=== PATIENT | female | born 1960 | race Caucasian/White ===

== ENCOUNTER 2018-10-12 16:25 | Inpatient (IN) | payer OTHER ==
[~2018-10-12 16:25] MED LIST: Heparin 10,000 UNITS/ 10 ML VIAL ONE
[2018-10-12 17:13] LABS: Mean Corpuscular HGB CONC 33.1 g/dL (32.0-36.0); Mean Corpuscular Hemoglobin 36.5 pg (27.0-31.0); Mean Platelet Volume 6.2 fL (7.4-10.4); Platelet Count 454 thou/uL (130-400); RBC Distribution Width 14.1 % (11.5-14.5); Red Blood Cell (RBC) Count 3.29 mill/uL (4.20-5.40); White Blood Cell (WBC) Count 38.7 thou/uL (4.8-10.8)
--- NOTE | 2018-10-12 17:19 | RAD ---
CHEST ONE VIEW 10/12/18 HISTORY: Cough. COMPARISON: None. FINDINGS: There is abnormal mass right lower lobe. There is also abnormal mass projecting in the right middle l obe. Heart size is mildly prominent. Increased interstitial markings lung bases. Old posterior left 7th rib fracture. IMPRESSION: 1. Mass-like densities projecting in the right middle and right lower lobe. This may reflect und erlying malignancy process versus resolving infection. Nonemergent CT chest recommended. 2. Interstitial markings lung bases can be seen with chronic interstitial lung disease. POS: HOME
[2018-10-12 17:22] LABS: ALT (SGPT) 19 U/L (8-55); AST (SGOT) 22 U/L (5-34); Albumin 3.9 g/dL (3.5-5.0); Alcohol Less than 10 mg/dL (Less than 10); Alkaline Phosphatase 211 U/L (40-150); BUN (Urea Nitrogen) 108 mg/dL (9.8-20.1); Bilirubin, Total 0.3 mg/dL (0.2-1.2); Calc. Creatinine Clearance 0 mL/min (70-130); Calcium 9.3 mg/dL (7.8-10.44); Chloride 96 mmol/L (98-107); Estimated GFR-MDRD 7; Globulin 4.8 g/dL (2.4-3.5); Glucose 163 mg/dL (70-105); Lipase 27 U/L (8-78); Potassium 4.9 mmol/L (3.5-5.1); Protein, Total 8.7 g/dL (6.0-8.3); Salicylate Less than 8.0 mg/dL (15.0-30.0); Sodium 122 mmol/L (136-145)
[2018-10-12 17:24] LABS: Carbon Dioxide Less than 8 mmol/L (22-29)
--- NOTE | 2018-10-12 17:43 | CT ---
CT BRAIN NONCONTRAST: DATE: 10/12/2018 HISTORY: 58-year-old female with fever and altered mental status. FINDINGS: There is no evidence of acute intra-axial or extra-axial hemorrhage. There is no midline shift or any other mass effect. There is no extra-axial fluid collection. There is no evidence of obstructive hydrocephalus. Calvarium is intact. There are air-fluid levels in the bilateral maxillary sinuses. Th e bilateral tympanomastoid cavities are grossly clear. Mucosal thickening throughout ethmoid air cells anteriorly. Hypoplastic frontal sinuses. IMPRESSION: 1) No acute intracranial findings. 2) fluid in the bilateral maxillary sinuses.
[2018-10-12 17:48] LABS: Band 20 % (5-11); Lymphocytes 2 % (21-51); MDiff Complete? YES; Macrocytosis MODERATE=16-30 cells (100X) (0-5/hpf); Monocytes 4 % (0-10); Neutrophil 74 % (42-75); Platelet Morphology Comment Appears Increased; Polychromasia SLIGHT = 2-3 cells (100X) (0-2/hpf)
--- NOTE | 2018-10-12 17:52 | CT ---
CT THORAX WITH CONTRAST: DATE: 10/12/2018 HISTORY: 58-year-old female with cough, chest congestion, and fever COMPARISON: none FINDINGS: Focal consolidation at the lingula, small. Patchy, irregularly-shaped moderate to small consolidation/infiltrate at lateral basilar segment of r ight lower lobe, and at base of right middle lobe. Smaller, milder infiltrates at posterior basilar segments of bilateral lower lobes, right greater jocelyn n left. Broad regions of tree in bud nodularity between the infiltrates at the basilar segments of right lowe r lobe. No pleural effusion or pneumothorax. No pulmonary edema. No neoplastic tumor mass identified. Ectasia and tortuosity of thoracic aorta without aneurysm. No cardiomegaly. No mediastina l lymphadenopathy. Trachea patent and clear.The upper and mid lung zones are clear. IMPRESSION: 1. Pneumonia in the basilar segments of bilateral lower lobes, right middle lobe, and lingula of left upper lobe. 2. No evidence of malignancy.
[2018-10-12 18:13] LABS: INR-International Normal Ratio 1.3; PTT 42.5 SEC (22.9-36.1); Prothrombin Time 16.3 SEC (12.0-14.7)
[2018-10-12] MEDS ORDERED: cefTRIAXone\\ROCEPHIN 2 GM VIAL ONE (18:31)
[2018-10-12 18:32] LABS: Bilirubin Negative (Negative); Blood, Urine Large (Negative); Clarity TURBID (Clear); Glucose, Urine (Dipstick) Negative (Negative); Leukocyte Small (Negative); Nitrite Negative (Negative); Protein, Urine (Dipstick) 100 mg/dL (Neg-Trace); Urobilinogen 0.2 mg/dL (0.2-1.0)
[2018-10-12 18:35] LABS: Bacteria/HPF None Seen HPF (None Seen); RBC/HPF GREATER THAN 50-TNTC HPF (0-3)
[2018-10-12 18:36] LABS: Hyaline Casts/LPF 0-3 HYALINE CAST LPF (0-3 Hyaline); Manual Microscopic Reviewed? No Path Casts Seen; Renal Epithelial None Seen HPF (0-3); Transitional Epithelial NONE SEEN HPF (0-3)
[2018-10-12 18:40] LABS: Analyzer IN Cardio ER; Base Excess (BEa) -27.4 mEq/L (-2.0 to +3.0); Calcium, Ionized 1.24 mmol/L (1.12-1.30); Carboxyhemoglobin (COHb) 0.6 gm% (0.0-3.0); Hemoglobin (Hb) 11.9 g/dL (12.0-16.0); O2 Tension (PaO2) 116.1 mmHg (80.0-100.0); Potassium - ABG Lab 4.92 mmol/L (3.70-5.30)
[2018-10-12 18:42] LABS: Amphetamine Not Detected (NotDetected); Barbiturates Screen Not Detected (NotDetected); Benzodiazepine Screen Not Detected (NotDetected); Cocaine Metabolite Screen Not Detected (NotDetected); Medtox Control Line Valid? VALID (VALID); Medtox Reader # READER 4; Methadone Not Detected (NotDetected); Methamphetamine Not Detected (NotDetected); Opiate Screen Detected (NotDetected); Oxycodone Screen Not Detected (NotDetected); Phencyclidine (PCP) Not Detected (NotDetected); THC/Cannabinoid Screen Not Detected (NotDetected); Tricyclic Screen Detected (NotDetected)
[2018-10-12] MEDS ORDERED: Sodium Bicarb 50 MEQ/50 ML Abboject 8.4% SYRINGE ONE (18:46)
--- NOTE | 2018-10-12 18:52 | CON ---
DATE OF CONSULTATION: REASON FOR CONSULTATION: Severe metabolic acidosis. HISTORY OF PRESENT ILLNESS: This is a somewhat noncompliant 58-year-old female who presented to the hospital after being unable to breathe. The patient has known CKD, but has had no recent followup with a records management engineer. The patient denies any nausea, vomiting, and cannot give no further history. PAST MEDICAL HISTORY: Significant for acute kidney injury requiring dialysis on multiple occasions, sepsis, spider bite. No hypertension. No diabetes or congestive heart failure. SOCIAL HISTORY: No alcohol or drug use. FAMILY HISTORY: Negative for ESRD. ALLERGIES: REVIEWED. HOME MEDICATIONS: List reviewed. REVIEW OF SYSTEMS: Unobtainable due to the patient's altered waxing and waning condition. PHYSICAL EXAMINATION: VITAL SIGNS: Afebrile, pulse 70, breathing 16, blood pressure 130/70. See above. The patient is somnolent. GENERAL APPEARANCE AND MENTAL STATUS: Fair. HEAD/NECK: Normocephalic. Atraumatic. EYES: EOMI. No deformity. EARS: Clear. No ulcers. NOSE: Intact. No lesions. MOUTH: Clear. No discharge. THROAT: Clear. No exudate. LUNGS: Clear. No crackles. CARDIAC: S1, S2. No rub. ABDOMEN: Benign. Bowel sounds positive. GENITALIA/RECTUM: Green absent. BACK/EXTREMITIES: Edema 0+. NEUROLOGICAL: The patient is somnolent. SKIN: LYMPHATICS: LABORATORY DATA: Sodium 122, creatinine 5.9. ASSESSMENT AND PLAN: 1. Acute kidney injury with chronic kidney disease, most likely due to progressive acute tubular necrosis in the setting of altered mental status, jerky movements. I will plan to dialyze the patient. Risks versus benefits were discussed with the patient including all complications and the patient with agreed to perform dialysis. 2. Anemia, stable. 3. Medications based on GFR appropriate. Overall prognosis is poor. 4. Elevated white count, probably could be sepsis, needs to be ruled out. Job ID: [id number]
[2018-10-12 19:01] LABS: CO2 Tension 13.8 mmHg (35.0-45.0); Puncture Site RBA; pH, Arterial 6.95 (7.35-7.45)
[2018-10-12] MEDS ORDERED: Piperacillin/Tazobactam 4.5 GM VIAL ONE (19:13)
[2018-10-12] MEDS ORDERED: Sodium Chloride 0.9% 100 ML ONE (19:14)
[2018-10-12] MEDS ORDERED: Acetaminophen 325 MG TAB PO PRN (19:26)
[2018-10-12] MEDS ORDERED: Sodium Chloride 0.9% (PF) 10 ML VIAL FS PRN (20:06)
[2018-10-12] MEDS ORDERED: Vancomycin Sliding Scale 1 EACH FS PRN (20:11)
--- NOTE | 2018-10-12 20:14 | HP ---
CHIEF COMPLAINT: Feeling real bad. PRIMARY CARE PROVIDER: Out of town. HISTORY OF PRESENT ILLNESS: This is a 58-year-old female with history of hypertension, history of requiring dialysis secondary to kidney injury, who presented to the emergency room with the above complaint. Please note that the patient does have encephalopathy and no significant history is obtained. The patient is aware that she is in the hospital, states her daughter was today, and that she has been feeling really bad. She is unable to focus and answer other questions. Family is not available currently to answer questions. In the emergency room, the patient was found to have an acute kidney injury, be uremic, with a severe metabolic acidosis and hyponatremia, high, and prison officer, general surgeon, hospitalist all called for care. The patient did receive a dialysis catheter by Dr. Leija, bicarbonate 2 amps, Zosyn 4.5 g, ceftriaxone 2 g, normal saline 30 mL/kg, vancomycin 1 g, all IV. ALLERGIES: PER CHART REVIEW, NONE KNOWN. HOWEVER, THIS HAS NOT BEEN CONFIRMED. CURRENT MEDICATIONS: Unknown. PAST MEDICAL HISTORY: Per chart review for; 1. An acute kidney injury requiring dialysis. 2. Sepsis. 3. History of staph infection. PAST SURGICAL HISTORY: Per chart review for right arm orthopedic surgery. SOCIAL HISTORY: Per chart review, the patient is . FAMILY HISTORY: Unknown. REVIEW OF SYSTEMS: Unobtainable. PHYSICAL EXAMINATION: VITAL SIGNS: Blood pressure 129/72, pulse 77, respirations 16, temp most recently 97.4 oral, however was 95.4 on arrival and sats 97% on room air. GENERAL: The patient will awaken to voice. She is alert. She responds to questions and then she will drift off. HEENT: Her pupils are equal and round. No scleral icterus. Her oral mucosa is pink and moist. NECK: Supple, nontender. LYMPHATICS: No palpable cervical or supraclavicular lymphadenopathy. LUNGS: Clear to auscultation bilateral. No audible wheezing, rhonchi, or rales HEART: Normal S1, S2. Regular rate and rhythm. No significant murmur. ABDOMEN: Soft with present bowel sounds. Nontender, nondistended. EXTREMITIES: No pitting edema, clubbing, or cyanosis. SKIN: No visible rashes. DIAGNOSTIC DATA: CT of her chest shows multifocal pneumonia and that was personally reviewed. Brain CT; no acute change, fluid in the bilateral maxillary sinuses. Chest x-ray showed masslike densities in the right middle and right lower lobe, which may reflect underlying malignancy versus resolving infection, interstitial markings at the lung bases which may be seen with chronic interstitial lung disease. LABORATORY DATA: Labs reviewed. CBC; 38.7, 12, 36.3, 454. PT 16, INR 1.3, PTT 42.5. Her ABG; 6.95, 13.8, 116 with a base excess of -27, and a sat of 96.3. Chemistry; 122, 4.9, 96, less than 8, 108, 5.98, 163. LFTs notable for an alkaline phosphatase of 211, total protein of 8.7, albumin 3.9. Troponin negative, lipase 27, TSH 2.58. Ammonia was 38. Urine shows present protein, large blood, small leukocyte esterase, greater than 50 red blood cells, 11-20 white blood cells, and 4-6 squamous cells. Toxicology; Tylenol level 39, salicylate less than 8, positive opiates and tricyclics. EKG; personally reviewed, sinus rhythm, normal axis, normal intervals, no ST changes. IMPRESSION: 1. Acute kidney injury in the context of a patient with a history of same requiring dialysis. She has a hyponatremia, uremia, severe metabolic acidosis, encephalopathy, hematuria and proteinuria, all associated. 2. Sepsis concerning for pneumonia given the patient's mental state, possibly an aspiration pneumonia. 3. Hematuria and pyuria, possible urinary tract infection. 4. Positive drug screen for opiates and tricyclics of uncertain etiology and present Tylenol level with normal LFT. 5. Unknown medical history and medications. PLAN: 1. Admission to the ICU. 2. The patient has received a dialysis catheter and will undergo hemodialysis with Dr. Duran. She is currently receiving bicarbonate to address this severe metabolic acidosis. 3. We will continue vancomycin and Zosyn with Pharmacy to dose renally. No indication to continue ceftriaxone. Follow blood and urine cultures. 4. N.p.o. 5. Monitor labs and urine output, renal ultrasound is ordered. 6. Obtain history from the family as they are available. 7. DVT prophylaxis with heparin. 8. GI prophylaxis. We will use IV Protonix while the patient is n.p.o. 9. Code status is presumed full given unable to confirm with family. 10. The patient is at high risk given age, comorbidities, and current presentation. 11. We will review the plan of care with the family as they are available as well as obtain more history. Job ID: [id number] MTDD
[2018-10-12 21:10] LABS: HBSAg Index 0.25 S/CO (0-0.99); Hep B Surf Ag Non-Reactive S/CO (NonReactive)
--- NOTE | 2018-10-12 21:10 | HP ---
Esha Swan, a 58-year-old female from [place] attending her daughter's wedding locally. She has been sick between 1 and 2 weeks, not feeling well, dyspneic, malaise. She attended her daughter's wedding today and presented to the emergency room. [place] [address], hemoglobin of 12. Her potassium is 4.9, sodium 122, BUN 108, creatinine 5.98, GFR 7. She had a right arm IV. I have been asked by Dr. Duran to place a hemodialysis urgent catheter for dialysis as she is terribly dyspneic and orthopneic. ALLERGIES: NONE. SOCIAL HISTORY: Tobacco none. Alcohol use in the past, none currently. MEDICATIONS: Antihypertensive, anti-depressants. PAST SURGICAL HISTORY: Noncontributory. PAST MEDICAL HISTORY: She has been on dialysis in the past and told that was secondary to sepsis. 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 REVIEW OF SYSTEMS: Noncontributory. PHYSICAL EXAMINATION: GENERAL: The patient is dyspneic, lethargic. She does interact appropriately. LUNGS: Rhonchi at base. CARDIAC: Regular rate and rhythm. ABDOMEN: Soft. EXTREMITIES: Edematous. LABORATORY DATA: As noted above. ASSESSMENT AND PLAN: Acute probably on chronic renal failure. We will place a temporary dialysis catheter for emergent dialysis. We will plan placement of more permanent dialysis access in the next 48-72 hours. Job ID: [id number]
[2018-10-12] MEDS: Heparin 5,000 UNITS/ML VIAL SC SCH (21:37)
[2018-10-13] MEDS: Sodium Chloride 0.9% 1,000 ML IV SCH ×2 (00:02→09:20)
[2018-10-13] MEDS: Piperacillin/Tazobactam 2.25 GM in Sodium Chloride 0.9% 100 ML IVPB SCH ×3 (02:45→18:04)
[2018-10-13] MEDS ORDERED: Sodium Chloride 0.9% 1,000 ML IV SCH ×2 (03:45→05:45)
[2018-10-13 06:13] LABS: Anion Gap 23 mmol/L (10-20); BUN (Urea Nitrogen) 47 mg/dL (9.8-20.1); Calc. Creatinine Clearance 19 mL/min (70-130); Calcium 7.2 mg/dL (7.8-10.44); Carbon Dioxide 13 mmol/L (22-29); Chloride 100 mmol/L (98-107); Estimated GFR-MDRD 15; Glucose 86 mg/dL (70-105); Potassium 2.9 mmol/L (3.5-5.1); Sodium 133 mmol/L (136-145)
[2018-10-13] MEDS ORDERED: Potassium Chloride 20 MEQ in Premix Bag 1 BAG IVPB ONE (07:45)
[2018-10-13 08:32] LABS: Band 14 % (5-11); Hemoglobin 9.2 g/dL (12.0-16.0); Lymphocytes 3 % (21-51); MDiff Complete? YES; Mean Corpuscular HGB CONC 34.1 g/dL (32.0-36.0); Mean Corpuscular Hemoglobin 35.8 pg (27.0-31.0); Mean Platelet Volume 6.1 fL (7.4-10.4); Monocytes 6 % (0-10); Myelocyte 1 % (0-0); Neutrophil 76 % (42-75); Nucleated RBC 1 % (0); Platelet Count 341 thou/uL (130-400); RBC Distribution Width 13.9 % (11.5-14.5); Red Blood Cell (RBC) Count 2.56 mill/uL (4.20-5.40); White Blood Cell (WBC) Count 21.8 thou/uL (4.8-10.8)
[2018-10-13 08:38] LABS: Vancomycin, Trough 11.9 ug/mL
--- NOTE | 2018-10-13 08:51 | ULT ---
Exam: Bilateral renal ultrasound complete: HISTORY: Acute kidney injury, hematuria COMPARISON: None FINDINGS: Right kidney: 9.8 x 4.3 x 4.5 cm Left kidney: 10.1 x 4.6 x 5.5 cm No renal hydronephrosis. Coarse increased renal cortical echogenicity evidence for nonspecific chronic renal disease. No perin ephric process. Somewhat distended gallbladder without overt gallbladder wall thickening, and fat-suppressed concern, follow-up dedicated gallbladder ultrasound is recommended. No solid or cystic renal mass. Unremarkable appearing bladder. IMPRESSION: No hydronephrosis. Increased renal cortical echogenicity particularly on the right side evidence for chronic change. Somewhat distended gallbladder incompletely visualized.
[2018-10-13] MEDS: Heparin 5,000 UNITS/ML VIAL SC SCH ×2 (09:18→20:54)
[2018-10-13] MEDS: Pantoprazole 40 MG VIAL IVP SCH (09:19)
--- NOTE | 2018-10-13 09:48 | ULT ---
ULTRASOUND UPPER EXTREMITY VESSEL MAPPING FOR DIALYSIS ACCESS: Date: 10/13/18 HISTORY: ESRD. FINDINGS: RIGHT UPPER EXTREMITY CEPHALIC VEIN Proximal Arm: 1.1 mm Mid Arm: 0.9 mm Distal Arm: 1.2 mm Antecubital Fossa: 1.1 mm Proximal Forearm: 2.1 mm Mid Forearm: 1.5 mm Distal Forearm: 1.3 mm BASILIC VEIN Proximal Arm: 5.1 mm Mid Arm: 3.9 mm Distal Arm: 3.7 mm Antecubital Fossa: 3.8 mm Proximal Forearm: 2.2 mm Mid Forearm: 0.9 mm Distal Forearm: 0.9 mm BRACHIAL ARTERY: 3.9 mm RADIAL ARTERY: 2.2 mm ULNAR ARTERY: 1.6 mm LEFT UPPER EXTREMITY CEPHALIC VEIN Proximal Arm: 3.3 mm Mid Arm: 2.0 mm Distal Arm: 1.8 mm Antecubital Fossa: 2.8 mm Proximal Forearm: 1.4 mm Mid Forearm: 1.2 mm Distal Forearm: 1.1 mm BASILIC VEIN Proximal Arm: 8.5 mm Mid Arm: 5.9 mm Distal Arm: 2.6 mm Antecubital Fossa: 2.8 mm Proximal Forearm: 1.1 mm Mid Forearm: 0.9 mm Distal Forearm: 0.9 mm BRACHIAL ARTERY: 4.3 mm RADIAL ARTERY: 1.8 mm ULNAR ARTERY: 1.8 mm POS: [facility]
[2018-10-13 10:28] LABS: Actual Bicarbonate (HCO3a) 12.2 mEq/L (22-28); Base Excess (BEa) -11.7 mEq/L (-2.0 to +3.0); Calcium, Ionized 0.96 mmol/L (1.12-1.30); Carboxyhemoglobin (COHb) 1.2 gm% (0.0-3.0); Hemoglobin (Hb) 9.7 g/dL (12.0-16.0); O2 Tension (PaO2) 75.3 mmHg (80.0-100.0); Potassium - ABG Lab 3.27 mmol/L (3.70-5.30); pH, Arterial 7.36 (7.35-7.45)
[2018-10-13 10:29] LABS: CO2 Tension 22.4 mmHg (35.0-45.0); Puncture Site RRA
[2018-10-13] MEDS ORDERED: Vancomycin HCl 250 MG in Sodium Chloride 0.9% 100 ML IVPB SCH (10:30)
[2018-10-13] MEDS ORDERED: Vancomycin HCl 1 GM in Premix Bag 1 BAG IVPB SCH (10:30)
[2018-10-13] MEDS ORDERED: Vancomycin HCl 750 MG in Sodium Chloride 0.9% 250 ML 250 ML IVPB SCH (10:30)
[2018-10-13] MEDS ORDERED: Vancomycin HCl 500 MG in Sodium Chloride 0.9% 100 ML IVPB SCH (10:30)
--- NOTE | 2018-10-13 11:21 | PRG ---
DATE OF SERVICE: 10/13/2018 SUBJECTIVE: A 58-year-old female being seen for end-stage renal disease. The patient denies any nausea, vomiting, or chest pain. OBJECTIVE: CONSTITUTIONAL: On examination, the patient is resting well. VITAL SIGNS: Afebrile, pulse 94, breathing 16, and blood pressure 104/61. GENERAL APPEARANCE AND MENTAL STATUS: Fair. HEAD/NECK: Normocephalic. Atraumatic. EYES: EOMI. No deformity. EARS: Clear. No ulcers. NOSE: Intact. No lesions. MOUTH: Clear. No discharge. THROAT: Clear. No exudate. LUNGS: Clear. No crackles. CARDIAC: S1, S2. No rub. ABDOMEN: Benign. Bowel sounds positive. GENITALIA/RECTUM: Green absent. BACK/EXTREMITIES: Edema 0+. NEUROLOGICAL: Alert and motor intact. LABORATORY DATA: Reviewed. ASSESSMENT AND PLAN: 1. Chronic kidney disease, stage 6. Plan dialysis tomorrow. 2. Metabolic acidosis. Start bicarbonate drip after potassium is fixed. 3. Hypokalemia. Recommend aggressive potassium replacement and rechecking potassium at 1:00 p.m. Sepsis management per Primary Team. Job ID: [id number]
--- NOTE | 2018-10-13 11:39 | PDOC.PN ---
- Subjective Encounter Start Date: 10/13/18 Encounter Start Time: 10:30 Ms. Swan was seen today in follow-up of acute on chronic kidney disease and pneumonia. She says she feels better today. She is much less short of breath. - Objective Resuscitation Status - Order Detail: 10/12/18 19:26 Resuscitation Status Routine Resuscitation Status: FULL: Full Resuscitation Discussed with: No family available at time of entering - need to discuss MAR Reviewed: Yes Vital Signs & Weight: Vital Signs (12 hours) Temp 10/13/18 08:00 98.5 F 10/13/18 06:00 99.2 F 10/13/18 04:55 97.9 F 10/13/18 04:00 98.1 F 10/13/18 00:00 97.5 F L Weight Weight 133 lb 6.075 oz Most Recent Monitor Data Heart Rate from ECG 93 NIBP 101/39 NIBP BP-Mean 59 Respiration from ECG 24 SpO2 93 I&O: 10/12/18 10/13/18 10/14/18 06:59 06:59 06:59 Intake Total 1900 Output Total 391 235 Balance 1509 -235 Result Diagrams: 10/13/18 05:16 10/13/18 05:16 Additional Labs: Accuchecks 10/12/18 16:52 POC Glucose 188 H Phys Exam - Physical Examination HEENT: PERRLA, sclera anicteric + rales at the right lung base Cardiovascular: RRR, no rub + sysolic murmur Gastrointestinal: soft, non-tender, no distention, positive bowel sounds + abdominal bruit Musculoskeletal: no edema, pulses present Neurological: non-focal, moves all 4 limbs Dx/Plan (1) Acute renal failure superimposed on chronic kidney disease Code(s): N17.9 - ACUTE KIDNEY FAILURE, UNSPECIFIED; N18.9 - CHRONIC KIDNEY DISEASE, UNSPECIFIED Status: Acute (2) Pneumonia Code(s): J18.9 - PNEUMONIA, UNSPECIFIED ORGANISM Status: Acute (3) Sepsis Code(s): A41.9 - SEPSIS, UNSPECIFIED ORGANISM Status: Acute - Plan * Acute on chronic kidney disease- she required emergent dialysis yesterday. renal ultrasound noted- management per nephrology * Pneumonia- will continue broad spectrum antibiotics for now (Vancomycin and Zosyn) . She has quite a leukomoid reaction . * Sepsis- likely from pneumonia- continue current antibiotics- await culture results * Heart murmur- possible new murmur- will check Echo
[2018-10-13] MEDS ORDERED: Potassium Chloride 20 MEQ TAB PO SCH ×3 (12:00→19:45)
[2018-10-13 13:31] LABS: Anion Gap 22 mmol/L (10-20); BUN (Urea Nitrogen) 48 mg/dL (9.8-20.1); Calc. Creatinine Clearance 17 mL/min (70-130); Calcium 7.1 mg/dL (7.8-10.44); Carbon Dioxide 11 mmol/L (22-29); Chloride 105 mmol/L (98-107); Estimated GFR-MDRD 14; Glucose 82 mg/dL (70-105); Magnesium 2.2 mg/dL (1.6-2.6); Potassium 3.4 mmol/L (3.5-5.1); Sodium 135 mmol/L (136-145)
[2018-10-13 18:48] LABS: Anion Gap 23 mmol/L (10-20); BUN (Urea Nitrogen) 49 mg/dL (9.8-20.1); Calc. Creatinine Clearance 16 mL/min (70-130); Calcium 7.3 mg/dL (7.8-10.44); Chloride 108 mmol/L (98-107); Estimated GFR-MDRD 13; Glucose 91 mg/dL (70-105); Potassium 3.8 mmol/L (3.5-5.1); Sodium 135 mmol/L (136-145)
[2018-10-13 18:51] LABS: Carbon Dioxide 8 mmol/L (22-29)
[2018-10-13] MEDS: Sodium Bicarbonate 150 MEQ in Dextrose 5% in Water 1,000 ML IV SCH (19:54)
--- NOTE | 2018-10-13 21:26 | CON ---
DATE OF CONSULTATION: 10/13/2018 HISTORY OF PRESENT ILLNESS: Ms. Swan is a 58-year-old female, admitted with acute renal failure. I was consulted because of her presence in the Critical Care Unit. She required emergent dialysis last night. She has been feeling poorly for 2 weeks, but did not want to go see a doctor because her daughter was getting yesterday. She actually had to leave in the middle of a wedding to go to the hospital. PAST HISTORY: Past medical history is very tangential. and the patient , both keep going back to a "left cheek spider bite" that led to a staph infection many years ago. All of her health problems reportedly started at that time they claim. SOCIAL HISTORY: Today admit that she has been a heavy drinker up until recently and she claims that she is not drinking anymore. She has a history of hyponatremia, but it is unclear whether or not the hyponatremia was related to her alcoholism or has continued to occur in spite of her alcohol abstinence. She reportedly has a history of depression. She has been intubated in the past and required emergent dialysis at least 2 times in the past. She has never had a renal biopsy. The family did know whether she has normal renal function in between these episodes. She is cared for at multiple places in [facility], but has received her care recently at [facility]. FAMILY HISTORY: Negative for lung disease in the early age. REVIEW OF SYSTEMS: 10 point review of systems completed, otherwise negative. PHYSICAL EXAMINATION: GENERAL: Says she feels fine right now. VITAL SIGNS: She is afebrile. Blood pressure 102/65, heart rate 82, respiratory rate 18. HEENT: Pupils are equal. Sclerae anicteric. NECK: Supple. No lymphadenopathy. LUNGS: Clear. HEART: Regular rhythm, S1 and S2 are normal, grade 1 to 2/6 systolic murmur. ABDOMEN: Soft and nontender. EXTREMITIES: Without clubbing, cyanosis, or edema. LABORATORY DATA: White count 21.8, it was 38.7 yesterday, hemoglobin 9.2, platelets 341. She had 76 segs, 14 bands and 20 bands yesterday. Interesting thing is that she had a bicarb of less than 8, but no circulating serum lactate with a lactate level of 0.6, alkaline phosphatase was isolated and elevated to 211. AST and ALT are normal. Total protein is 8.7, globulin is 4.8. Urinalysis showed [id number]-count red cells, 11 to 20 white cells. Her initial creatinine is 5.98. Initial potassium was 4.9. Amazingly, her blood gas showed pH 6.95, pCO2 of 13, pO2 of 116. IMPRESSION: Acute renal failure with severe metabolic acidosis secondary to acute renal failure of unclear etiology. Obviously, there are multiple possible etiologies. It is unclear whether renal function is in between these episodes. They really just want to get back to dialysis, so it is reasonable once she has had documentation of stability of her acid-base disorder, she could go back to dialysis. PH today is 7.36, pCO2 of 22 , pO2 of 75. The academic support specialist's plans to give her bicarb that fails to lead to resolution of her acid-base disorder, so she just needs to be dialyzed again. I doubt seriously if she is septic. With her elevated total serum protein and elevated globulin fraction, I would wonder about multiple myeloma. I am more concerned that she has a primary glomerulonephritis that was waxing and waning. I would think she would need a renal biopsy, but all will be deferred to Nephrology. She is medically stable and can transfer out of the Critical Care Unit, probably in the morning and perhaps even be discharged back to [place] to see her academic support specialist early this week. She needs copies of her records and her imaging. Since she is not going to receive care here, I do not feel she needs dialysis access placed here. I do not think a renal biopsy would be appropriate here as well. She has bilateral increased echogenicity on renal ultrasound, arguing that she does have chronic intrinsic renal disease. I will send an antineutrophil cytoplasmic antibody today, but I did not send any other serology. Hepatitis serology was negative. I doubt this is HIV related, but this probably needs to be checked at some point. She appears to be stable at this point in time. TIME SPENT: This is a 70-minute consult, with greater than 50% of time spent on the unit coordinating care. Job ID: [id number] MTDD
[2018-10-14] MEDS: Piperacillin/Tazobactam 2.25 GM in Sodium Chloride 0.9% 100 ML IVPB SCH ×3 (02:48→17:48)
[2018-10-14 05:25] LABS: Anion Gap 19 mmol/L (10-20); BUN (Urea Nitrogen) 50 mg/dL (9.8-20.1); Calc. Creatinine Clearance 17 mL/min (70-130); Calcium 7.3 mg/dL (7.8-10.44); Carbon Dioxide 12 mmol/L (22-29); Chloride 107 mmol/L (98-107); Estimated GFR-MDRD 13; Glucose 132 mg/dL (70-105); Potassium 3.4 mmol/L (3.5-5.1); Sodium 135 mmol/L (136-145)
[2018-10-14 05:30] LABS: Band 7 % (5-11); Eosinophils 1 % (0-10); Hemoglobin 8.8 g/dL (12.0-16.0); Lymphocytes 10 % (21-51); MDiff Complete? YES; Macrocytosis SLIGHT = 6-15 cells (100X) (0-5/hpf); Mean Corpuscular HGB CONC 33.6 g/dL (32.0-36.0); Mean Corpuscular Hemoglobin 35.7 pg (27.0-31.0); Mean Platelet Volume 5.8 fL (7.4-10.4); Monocytes 11 % (0-10); Neutrophil 71 % (42-75); Platelet Count 325 thou/uL (130-400); RBC Distribution Width 14.6 % (11.5-14.5); Red Blood Cell (RBC) Count 2.46 mill/uL (4.20-5.40); White Blood Cell (WBC) Count 20.8 thou/uL (4.8-10.8)
[2018-10-14] MEDS: Sodium Bicarbonate 150 MEQ in Dextrose 5% in Water 1,000 ML IV SCH ×3 (07:49→20:13)
[2018-10-14 08:31] LABS: Vancomycin, Random 9.5 ug/mL (See Comment)
[2018-10-14] MEDS: Heparin 5,000 UNITS/ML VIAL SC SCH ×2 (09:40→20:13)
[2018-10-14] MEDS: Pantoprazole 40 MG VIAL IVP SCH (09:41)
--- NOTE | 2018-10-14 11:09 | PDOC.PN ---
- Subjective Encounter Start Date: 10/14/18 Encounter Start Time: 11:08 Ms. Swan was seen today in follow-up of acute on chronic kidney disease. she says she is feeling better today. She admits to a cogh which is productive of some fairly thick green sputum. - Objective Resuscitation Status - Order Detail: 10/12/18 19:26 Resuscitation Status Routine Resuscitation Status: FULL: Full Resuscitation Discussed with: No family available at time of entering - need to discuss MAR Reviewed: Yes Vital Signs & Weight: Vital Signs (12 hours) Temp Pulse Ox 10/14/18 08:00 98.3 F 100 10/14/18 04:00 98.0 F 10/14/18 00:00 98.5 F Weight Weight 135 lb 2.294 oz Most Recent Monitor Data Heart Rate from ECG 88 NIBP 111/64 NIBP BP-Mean 79 Respiration from ECG 24 SpO2 100 I&O: 10/13/18 10/14/18 10/15/18 06:59 06:59 06:59 Intake Total 1900 2928 Output Total 391 1840 600 Balance 1509 1088 -600 Result Diagrams: 10/14/18 04:35 10/14/18 04:35 Phys Exam - Physical Examination HEENT: PERRLA Respiratory: no wheezing, no rhonchi + rales at both lung bases, R>L Cardiovascular: RRR, no rub 2/6 systolic murmur Gastrointestinal: soft, non-tender, no distention, positive bowel sounds Musculoskeletal: no edema, pulses present Neurological: non-focal, normal sensation, moves all 4 limbs Dx/Plan (1) Acute renal failure superimposed on chronic kidney disease Code(s): N17.9 - ACUTE KIDNEY FAILURE, UNSPECIFIED; N18.9 - CHRONIC KIDNEY DISEASE, UNSPECIFIED Status: Acute (2) Pneumonia Code(s): J18.9 - PNEUMONIA, UNSPECIFIED ORGANISM Status: Acute (3) Sepsis Code(s): A41.9 - SEPSIS, UNSPECIFIED ORGANISM Status: Acute - Plan * Acute on chronic kidney injury vs. ESRD- continue management as per Nephrology * Pneumonia with sepsis- discussed with Dr. Silva- can begin to de-escalate her antibiotics * The Leukocytosis is improving * Severe metabolic acidosis- unclear etiology- will defer to Nephrology.
[2018-10-14 13:19] VITALS: BMI 22.4
--- NOTE | 2018-10-14 16:14 | PRG ---
DATE OF SERVICE: 10/14/2018 SERVICE: Pulmonary Medicine. INTERVAL HISTORY: The patient is doing fine from respiratory standpoint. She denies any current chest pain, fevers, or chills. Otherwise, there has been no interval change to her condition. She did not have any dialysis yesterday and her bicarb seems to be improving slightly. She has had no formal workup for acid or for what is causing her acidosis. PHYSICAL EXAMINATION: VITAL SIGNS: Afebrile, pulse 96, blood pressure 102/66, respirations 22, and saturation 96% on room air. GENERAL: The patient is awake and alert, in no apparent distress. LUNGS: Decent air entry without any prolonged expiratory phase or wheezing present. HEART: Normal rate and regular. ABDOMEN: Soft, nontender, and nondistended. Bowel sounds are positive. MUSCULOSKELETAL: No cyanosis or clubbing. There is no pitting in bilateral lower extremities. NEUROLOGIC: Grossly nonfocal. LABORATORY DATA: WBC 20.8, hemoglobin 8.8, and platelets 325,000. Neutrophil and band count are returning to the normal limits, and lymphocyte and monocyte counts are rebounding. INR 1.33. The pH 7.36, pCO2 of 22, and pO2 of 75. Creatinine 3.49, and stable. Potassium 3.4, basic metabolic profile is otherwise unremarkable. Magnesium previously 2.2, ammonia 38, liver function studies were unremarkable except for minimally elevated alkaline phosphatase. Lipase and TSH fell within the normal limits, lactate was unremarkable, and ammonia was normal. Urinalysis is positive for red blood cells. Alcohol and salicylates are unremarkable. Urine drug screen is positive for opiates and tricyclics. Acetaminophen level is elevated at 39. Hepatitis B surface antigen is nonreactive. Blood cultures x2 and urine culture negative to date. IMAGING STUDIES: Echocardiogram shows a normal ejection fraction with minimal diastolic dysfunction. Mild aortic stenosis is noted. ASSESSMENT: 1. Metabolic acidosis, severe. 2. Acute renal failure, suspected. 3. Hematuria. 4. Severe sepsis. DISCUSSION AND PLAN: The patient is stable for transition out of the ICU to the floor. When she gets out of the hospital, she will need to undergo a thorough evaluation for why she is having the recurrent episodes of severe acidosis. I will continue the bicarb drip for the time being. If she still requiring into tomorrow, we will need to convert her over to p.o. Vancomycin will be interrupted today. We will continue the Zosyn. We really do not have a source or an idea of what we were treating. If by tomorrow, we have not captured an organism, I would empirically treat her with Augmentin for duration of roughly 7 days. None of the Green catheter has been removed, we can repeat a urinalysis in the morning to see if the hematuria has persisted. Job ID: [id number]
[2018-10-15] MEDS: Piperacillin/Tazobactam 2.25 GM in Sodium Chloride 0.9% 100 ML IVPB SCH (03:23)
[2018-10-15 04:54] LABS: Bilirubin Negative (Negative); Blood, Urine Small (Negative); Clarity CLEAR (Clear); Glucose, Urine (Dipstick) Negative (Negative); Leukocyte Negative (Negative); Nitrite Negative (Negative); Protein, Urine (Dipstick) Trace mg/dL (Neg-Trace); Urobilinogen 0.2 mg/dL (0.2-1.0)
[2018-10-15 04:55] LABS: Bacteria/HPF None Seen HPF (None Seen); Hyaline Casts/LPF 0-3 HYALINE CAST LPF (0-3 Hyaline); Pathc Cast-AUWi Flag 0.13 (0-2.49); Squamous Epithelial None Seen HPF (0-3); WBC/HPF 0-3 HPF (0-3)
[2018-10-15 06:17] LABS: Anion Gap 19 mmol/L (10-20); BUN (Urea Nitrogen) 38 mg/dL (9.8-20.1); Calc. Creatinine Clearance 23 mL/min (70-130); Calcium 7.6 mg/dL (7.8-10.44); Carbon Dioxide 20 mmol/L (22-29); Chloride 100 mmol/L (98-107); Estimated GFR-MDRD 19; Glucose 127 mg/dL (70-105)
[2018-10-15 06:22] LABS: Potassium 2.8 mmol/L (3.5-5.1); Sodium 136 mmol/L (136-145)
[2018-10-15 06:30] LABS: Band 6 % (5-11); Eosinophils 1 % (0-10); Hemoglobin 9.1 g/dL (12.0-16.0); Lymphocytes 15 % (21-51); MDiff Complete? YES; Mean Corpuscular HGB CONC 33.7 g/dL (32.0-36.0); Mean Corpuscular Hemoglobin 35.5 pg (27.0-31.0); Mean Platelet Volume 5.9 fL (7.4-10.4); Monocytes 12 % (0-10); Neutrophil 66 % (42-75); Platelet Count 324 thou/uL (130-400); RBC Distribution Width 14.5 % (11.5-14.5); Red Blood Cell (RBC) Count 2.57 mill/uL (4.20-5.40); White Blood Cell (WBC) Count 17.6 thou/uL (4.8-10.8)
[2018-10-15] MEDS ORDERED: Potassium Chloride 20 MEQ TAB PO SCH ×3 (07:00→17:00)
[2018-10-15] MEDS: Heparin 5,000 UNITS/ML VIAL SC SCH (07:32)
[2018-10-15] MEDS: Pantoprazole 40 MG VIAL IVP SCH (07:33)
[2018-10-15] MEDS: Sodium Bicarbonate 150 MEQ in Dextrose 5% in Water 1,000 ML IV SCH (09:51)
--- NOTE | 2018-10-15 09:57 | PRG ---
DATE OF SERVICE: 10/14/2018 OBJECTIVE: GENERAL: This is a well-built female, in no apparent distress. VITAL SIGNS: Temperature 97.7, pulse 83, respiratory rate 20, blood pressure 112/64. LABORATORY DATA: Sodium 135, potassium 3.4, BUN is 50, creatinine is 3.4. ASSESSMENT AND PLAN: 1. Acute kidney injury on chronic kidney disease stage 4, seems like renal function is stable, no acute indication for dialysis. 2. Severe metabolic acidosis, seems to be better or stable. 3. Hypokalemia, replace and monitor. 4. Hyponatremia. 5. Hypocalcemia. 6. Anemia . 7. No acute indication for dialysis today. We will continue to monitor. The patient does reports that he does not have a regular followup. The patient was advised to follow up with Nephrology. If labs are stable, she can be discharged and follow up as outpatient with monitor car operator. Monitor urine output closely. Avoid nephrotoxins. Job ID: [id number]
[2018-10-15] MEDS ORDERED: Piperacillin/Tazobactam 2.25 GM in Sodium Chloride 0.9% 100 ML IVPB SCH (11:00)
--- NOTE | 2018-10-15 13:13 | PRG ---
DATE OF SERVICE: 10/15/2018 SERVICE: Pulmonary Medicine. INTERVAL HISTORY: The patient is doing fine from respiratory standpoint. She is breathing comfortably. She has absolutely no complaints of chest pain, fevers, cough, sputum production, nausea, or vomiting. Otherwise, she feels that she is returning to her usual state of health and has absolutely no complaints. PHYSICAL EXAMINATION: VITAL SIGNS: Afebrile, pulse 75, blood pressure 133/84, respirations 16, and saturation 100% on room air. GENERAL: The patient is awake and alert, in no apparent distress. LUNGS: Excellent air entry without any prolonged expiratory phase or wheezing. HEART: Normal rate and regular. ABDOMEN: Soft, nontender, and nondistended. Bowel sounds are positive. MUSCULOSKELETAL: No cyanosis or clubbing. No pitting in the bilateral lower extremities. SKIN: Tenting is improved. Neurologic: Grossly nonfocal. LABORATORY DATA: WBC is downtrending to 17.6, hemoglobin 9.1, and platelets 324,000. Neutrophil count has returned to normal. INR 1.3. Potassium 2.8, creatinine is downtrending to 2.62, BUN 38, bicarb has improved to 20, and calcium 7.6. Blood cultures x2 and urine culture negative. ASSESSMENT: 1. Metabolic acidosis, severe. 2. Acute kidney injury, resolving. 3. Hematuria, nearly resolved. 4. Hypokalemia, resolved. 5. Severe sepsis, clearing, source unknown. DISCUSSION AND PLAN: At this point, the patient has no further inpatient requirements for Pulmonary/Critical Care opinion. I will replace the potassium. We will discontinue the bicarb drip and will also schedule Bicitra twice daily. She already has laboratories, and an appointment with her primary care physician in 1 week at the end of this week. As soon as she gets home, she will make contact with her shop director, and get in with them as soon as possible, so that they can try to clarify why she is having this acidosis. If she develops any significant respiratory issues, please give me a phone call, but otherwise, she has no further requirements for inpatient Pulmonary opinion. Job ID: [id number]
--- NOTE | 2018-10-15 13:48 | PDOC.PN ---
- Subjective Encounter Start Date: 10/15/18 Encounter Start Time: 13:46 Ms. Swan was seen today in follow-up of acute on chronic kidney disease. She says she feels fine, and wants to go home. - Objective Resuscitation Status - Order Detail: 10/12/18 19:26 Resuscitation Status Routine Resuscitation Status: FULL: Full Resuscitation Discussed with: No family available at time of entering - need to discuss MAR Reviewed: Yes Vital Signs & Weight: Vital Signs (12 hours) Temp Pulse Resp BP Pulse Ox 10/15/18 11:46 98.6 F 75 16 133/84 98 10/15/18 07:35 98.2 F 61 16 114/75 100 10/15/18 07:32 100 Weight Admit Weight 135 lb Weight 136 lb 12.8 oz Most Recent Monitor Data Heart Rate from ECG 80 NIBP 102/66 NIBP BP-Mean 78 Respiration from ECG 22 SpO2 100 I&O: 10/14/18 10/15/18 10/16/18 06:59 06:59 06:59 Intake Total 2928 1440 Output Total 1840 900 Balance 1088 540 Result Diagrams: 10/15/18 05:47 10/15/18 05:47 Phys Exam - Physical Examination HEENT: PERRLA Respiratory: wheezing present + rales at the left base Cardiovascular: RRR, no significant murmur, no rub Gastrointestinal: soft, non-tender, no distention, positive bowel sounds Musculoskeletal: no edema, pulses present Dx/Plan (1) Acute renal failure superimposed on chronic kidney disease Code(s): N17.9 - ACUTE KIDNEY FAILURE, UNSPECIFIED; N18.9 - CHRONIC KIDNEY DISEASE, UNSPECIFIED Status: Acute (2) Pneumonia Code(s): J18.9 - PNEUMONIA, UNSPECIFIED ORGANISM Status: Acute (3) Sepsis Code(s): A41.9 - SEPSIS, UNSPECIFIED ORGANISM Status: Acute - Plan * Acute on chronic kideny injury- stable * Metabolic acidosis- ? etiology- this can be worked up with her Primary Head Waitress * Stable for discharge home.
[2018-10-15 14:37] VITALS: BP 136/83; TEMP 98.1
--- NOTE | 2018-10-15 15:05 | PRG ---
DATE OF SERVICE: 10/15/2018 SUBJECTIVE: Patient was seen and examined at bedside and overnight events noted. Patient denies any shortness of breath or chest pain or palpitation. No history of nausea or vomiting or diarrhea or fever or chills or cramps. OBJECTIVE: GENERAL: This is a well-built female, in no acute distress. VITAL SIGNS: Temperature 96, heart rate 74, respiratory rate 16, and blood pressure 133/84. HEENT: Atraumatic, normocephalic. Oral mucosa is moist. NECK: Supple. CARDIOVASCULAR: S1, S2 heard. Rate and rhythm regular. RESPIRATORY: Clear to auscultation. GASTROINTESTINAL: Abdomen is soft. MUSCULOSKELETAL: No tenderness. No edema. DERMATOLOGIC: No skin rash. NEUROLOGIC: Alert and awake and oriented X3. No focal neurologic deficits. Moving all the extremities. PSYCHIATRIC: Mood and affect normal. LABORATORY DATA: Potassium is 2.8, BUN is 38, and creatinine is 2.6. ASSESSMENT AND PLAN: 1. Acute kidney injury, on chronic kidney disease, getting better. 2. Hypokalemia, replace and monitor. 3. Metabolic acidosis, better. 4. Hyponatremia. 5. Hypocalcemia. 6. Replace potassium. Avoid nephrotoxins. Job ID: [id number]
[2018-10-15] MEDS ORDERED: Amoxicillin/Potassium Clav 500 MG TAB PO SCH (21:00)
[2018-10-15] MEDS ORDERED: Sodium Bicarbonate Tab 325 MG TAB PO SCH (21:00)
--- NOTE | 2018-10-15 21:14 | DIS ---
DATE OF ADMISSION: 10/12/2018 DATE OF DISCHARGE: 10/15/2018 DISCHARGE DISPOSITION: Home. DISCHARGE DIAGNOSES: 1. Acute on chronic kidney failure, stage 5. 2. Metabolic acidosis. 3. Hypokalemia. 4. History of staph infections in the past. 5. Bilateral pneumonia. 6. Sepsis secondary to pneumonia. DISCHARGE MEDICATIONS: 1. Sodium bicarbonate 325 mg twice daily. 2. K-Dur 20 mEq daily. 3. Augmentin 500 mg q.12. PROCEDURES DONE DURING THE ADMISSION: The patient had a CT scan of the brain, which showed no acute intracranial findings. There was fluid in the maxillary sinus. Also had a CT scan of the chest showing pneumonia in the basilar segments of both lobes. There is no evidence of malignancy and the patient had an echocardiogram, showing an ejection fraction of 55% to 60%. E/A flow reversal was noted suggestive of diastolic dysfunction. CODE STATUS: Full code. ALLERGIES: NO KNOWN DRUG ALLERGIES. HOSPITAL COURSE: Ms. Swan is a pleasant 58-year-old female, who presented to the emergency room after feeling extremely bad. She was also found to be extremely short of breath. In the ER, she was found to be hyponatremic and with severe metabolic acidosis. She had to undergo urgent dialysis with removal of fluid and correction of the acidosis. She tolerated the dialysis. It is unclear whether or not she has end-stage renal disease or just approaching end-stage renal disease. She sees a cooler supervisor in her hometown outside of [place]. She also had a persistent metabolic acidosis which had not been worked up in the past. She will be placed on sodium bicarbonate as well as potassium replacement and Augmentin for the lung infection and after she was stabilized, she was discharged home to have urgent followup with her cooler supervisor in the outpatient setting. Job ID: [id number]
== END 2018-10-15 14:53 | disposition home or self-care (01) | DRG 871 ==
LOC: ERS 16:25 → CCU 18:48 → T4-B 10-14 14:54
PROVIDERS: ADMIT Family Medicine; ATTEND Family Medicine
PROC: 5A1D70Z Performance of Urinary Filtration, Intermittent, Less than 6 Hours Per Day (ICD-10-PCS; principal; 2018-10-12)
DX: A41.9 Sepsis, unspecified organism (principal); N17.0 Acute kidney failure with tubular necrosis; J18.1 Lobar pneumonia, unspecified organism; E87.1 Hypo-osmolality and hyponatremia; N18.5 Chronic kidney disease, stage 5; D63.1 Anemia in chronic kidney disease; E87.6 Hypokalemia; R65.20 Severe sepsis without septic shock; R31.9 Hematuria, unspecified; E83.51 Hypocalcemia; Z91.19 Patient's noncompliance with other medical treatment and regimen; Z79.899 Other long term (current) drug therapy
CPT/HCPCS: 36415; 36416; 36556; 51702; 70450; 71045; 71250; 76770; 80048; 80053; 80202; 80306; 80307; 81001; 81003; 81015; 82140; 82805; 83520; 83605; 83690; 83735; 84443; 84484; 85007; 85025; 85027; 85610; 85730; 86256; 87040; 87086; 87340; 90935; 93005; 93306; 93970; 94760; 96361; 96365; 96374; 96375; C1752; C9113; G0257; G0365; J0696; J1642; J1644; J2543; J3370; J3480; J3490; J7070